=== PATIENT | male | born 1980 | race Caucasian/White ===

== ENCOUNTER 2019-04-03 18:07 | Emergency (ER) | payer BC ==
[2019-04-03] MEDS ORDERED: Morphine 2 MG/ML Syringe IVPUSH ONE ×2 (18:27→19:08)
[2019-04-03] MEDS ORDERED: Sodium Chloride 0.9% 1,000 ML IV ONE (18:27)
[2019-04-03] MEDS ORDERED: Ondansetron 4 MG/2 ML SDV IVPUSH ONE (18:27)
[2019-04-03] MEDS ORDERED: Diphtheria/Tetanus Toxoids,Adult (Td) 0.5 ML Syringe IM ONE (18:36)
[2019-04-03] MEDS ORDERED: Bacitracin Oint 1 GM U/D Packet TOP ONE (18:54)
[2019-04-03] MEDS ORDERED: cefTRIAXone 1 GM in Premix Bag 1 BAG IV ONE (18:54)
--- NOTE | 2019-04-03 19:09 | EDM.PDOC ---
ED HPI GENERAL MEDICAL PROBLEM - General Chief Complaint: Upper Extremity Injury/Pain Stated Complaint: CUT OFF FINGERS Time Seen by Provider: 04/03/19 18:23 Source of Information: Reports: Patient History Limitations: Reports: No Limitations - History of Present Illness INITIAL COMMENTS - FREE TEXT/NARRATIVE: HISTORY AND PHYSICAL: History of present illness: Patient is a 38-year-old male presents to the ED today after having a saw to his left fingers. Patient states he was working on a project at home when the side slipped and he had caught the foreign noticed third and fourth fingers. Patient states he has not had much blood loss and has come to the ED immediately. Patient states he is not up-to-date on vaccinations. Patient denies any other symptoms or any prior injury to the hand. Patient denies fever, chills, chest pain, shortness of breath, or cough. Denies headache, neck stiff ness, change in vision, syncope, or near syncope. Denies nausea, vomiting, abdominal pain, diarrhea, constipation, or dysuria. Has not noted any blood in urine or stool. Patient has been eating and drinking appropriately. Review of systems: As per history of present illness and below otherwise all systems reviewed and negative. Past medical history: As per history of present illness and as reviewed below otherwise noncontributory. Surgical history: As per history of present illness and as reviewed below otherwise noncontributory. Social history: See social history for further information Family history: As per history of present illness and as reviewed below otherwise noncontributory. Physical exam: General: Patient is alert, oriented, and in no acute distress. Patient laying comfortably on exam table. HEENT: Atraumatic, normocephalic, pupils equal and reactive bilaterally, negative for conjunctival pallor or scleral icterus, mucous membranes moist, TMs normal bilaterally, throat clear, neck supple, nontender, trachea midline. No drooling or trismus noted. No meningeal signs. No hot potato voice noted. Lungs: Clear to auscultation, breath sounds equal bilaterally, chest nontender. Heart: S1S2, regular rate and rhythm without overt murmur Abdomen: Soft, nondistended, nontender. Negative for masses or hepatosplenomegaly. Negative for costovertebral tenderness. Pelvis: Stable nontender. Genitourinary: Deferred. Rectal: Deferred. Skin:See extremities. Otherwise, Intact, warm, dry. No lesions or rashes noted. Extremities: Digits 3 and 4 of the left hand are 3/4 amputated at distal tips with bone exposed. Neuro: Awake, alert, oriented. Cranial nerves II through XII unremarkable. Cerebellum unremarkable. Motor and sensory unremarkable throughout. Exam nonfocal. Notes: Dr. Maurer directly involved in patient care. Ring was removed from patient's left hand. We do not have available EMS transfer but patient's is able to transfer via private vehicle. [facility], consulted on patient and will transfer to Dr. Palma and Dr. Singer via private vehicle Voices understanding and is agreeable to plan of care. Denies any further questions or concerns at this time. 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 Transfer to [facility] [place] to Dr. Singer/Dr. Palma. 2. Go to [facility] ER directly. Do not stop elsewhere. They are expecting you immediately. Definitive disposition and diagnosis as appropriate pending reevaluation and review of above. Treatments PRN PHYSICAL THERAPIST: Reports: Dressing(s) left hand Pain Score (Numeric/FACES): 10 - Related Data Allergies Allergy/AdvReac Type Severity Reaction Status Date / Time No Known Allergies Allergy Verified 04/03/19 18:24 Home Meds: Home Meds . [No Known Home Meds] 04/03/19 [History] Past Medical History - Past Health History Medical/Surgical History: Denies Medical/Surgical History Social & Family History - Family History Family Medical History: Noncontributory - Tobacco Use Smoking Status *Q: Never Smoker - Recreational Drug Use Recreational Drug Use: No Review of Systems - Review of Systems Review Of Systems: ROS reveals no pertinent complaints other than HPI. ED EXAM, GENERAL - Physical Exam Exam: See Below (See dictation) Course - Vital Signs Last Recorded V/S: Last Vital Signs Temp 35.5 C 04/03/19 18:07 Pulse 84 04/03/19 18:07 Resp 20 04/03/19 18:07 BP 151/79 H 04/03/19 18:07 Pulse Ox 97 04/03/19 18:07 - Orders/Labs/Meds Orders: Active Orders 24 hr Category Date Time Status Vaccines to be Administered [RC] PER UNIT ROUTINE Care 04/03/19 18:37 Active HYDROmorphone [Dilaudid] Med 04/03/19 19:46 Once 1 mg IVPUSH ONETIME ONE Labs: Laboratory Tests 04/03/19 Range/Units 18:15 WBC 8.99 (4.0-11.0) K/uL RBC 5.23 (4.50-5.90) M/uL Hgb 15.4 (13.0-17.0) g/dL Hct 44.5 (38.0-50.0) % MCV 85.1 (80.0-98.0) fL MCH 29.4 (27.0-32.0) pg MCHC 34.6 (31.0-37.0) g/dL RDW Std Deviation 43.6 (28.0-62.0) fl RDW Coeff of Tan 14 (11.0-15.0) % Plt Count 231 (150-400) K/uL MPV 10.60 (7.40-12.00) fL Neut % (Auto) 38.1 L (48.0-80.0) % Lymph % (Auto) 52.3 H (16.0-40.0) % [place] % (Auto) 7.3 (0.0-15.0) % Eos % (Auto) 2.1 (0.0-7.0) % Baso % (Auto) 0.2 (0.0-1.5) % Neut # (Auto) 3.4 (1.4-5.7) K/uL Lymph # (Auto) 4.7 H (0.6-2.4) K/uL [place] # (Auto) 0.7 (0.0-0.8) K/uL Eos # (Auto) 0.2 (0.0-0.7) K/uL Baso # (Auto) 0.0 (0.0-0.1) K/uL Nucleated RBC % 0.0 /100WBC Nucleated RBCs # 0 K/uL Meds: Medications Discontinued Medications Generic Name Dose Route Start Last Admin Trade Name Freq PRN Reason Stop Dose Admin Bacitracin 1 dose 04/03/19 18:54 06/03/19 19:05 Bacitracin Oint 1 Gm TOP 04/03/19 18:55 1 dose ONETIME ONE Administration Sodium Chloride 1,000 mls @ 999 mls/hr 04/03/19 18:27 04/03/19 18:36 Normal Saline IV 04/03/19 19:27 999 mls/hr STAT ONE Administration Ceftriaxone Sodium/Dextrose 1 50 mls @ 100 mls/hr 04/03/19 18:54 04/03/19 19: 04 gm/ Premix IV 04/03/19 19:23 100 mls/hr ONETIME ONE Administration Morphine Sulfate 2 mg 04/03/19 18:27 04/03/19 18:35 Morphine IVPUSH 04/03/19 18:28 2 mg ONETIME ONE Administration Morphine Sulfate 2 mg 04/03/19 19:08 04/03/19 19:15 Morphine IVPUSH 04/03/19 19:09 2 mg ONETIME ONE Administration Ondansetron HCl 4 mg 04/03/19 18:27 04/03/19 18:35 Zofran IVPUSH 04/03/19 18:28 4 mg ONETIME ONE Administration Tetanus/Diphtheria Toxoids 0.5 ml 04/03/19 18:36 04/03/19 18:47 Tenivac IM 04/03/19 18:37 Not Given .ONCE ONE Departure - Departure Time of Disposition: 19:50 Disposition: DC/Tfer to [facility] 02 Clinical Impression: Finger amputation, traumatic Qualifiers: Encounter type: initial encounter Qualified Code(s): S68.119A - Complete traumatic metacarpophalangeal amputation of unspecified finger, initial encounter - Discharge Information Referrals: PCP,None [Primary Care Provider] - Forms: ED Department Discharge Additional Instructions: 1. Transfer to [facility] [place] to Dr. Singer/Dr. Palma. 2. Go to [facility] ER directly. Do not stop elsewhere. They are expecting you immediately. - My Orders Last 24 Hours: My Active Orders 04/03/19 18:37 Vaccines to be Administered [RC] PER UNIT ROUTINE 04/03/19 19:46 HYDROmorphone [Dilaudid] 1 mg IVPUSH ONETIME ONE - Assessment/Plan Last 24 Hours: My Active Orders 04/03/19 18:37 Vaccines to be Administered [RC] PER UNIT ROUTINE 04/03/19 19:46 HYDROmorphone [Dilaudid] 1 mg IVPUSH ONETIME ONE
--- NOTE | 2019-04-03 19:18 | CR ---
Indication: Injury and pain Technique: Left hand 3 views Comparison: None Findings/Impression: Bones and soft tissues: No acute displaced fractures with soft tissue injury are in the distal phalanges of the 3rd and 4th fingers. No other osseous abnormality. No foreign body. Joint spaces: Unremarkable. Dictated by Pedro Young MD @ Apr 03 2019 7:14PM Signed by Dr. Pedro Young @ Apr 03 2019 7:16PM
[2019-04-03] MEDS ORDERED: HYDROmorphone 1 MG/ML Syringe IVPUSH ONE (19:46)
== END 2019-04-03 20:30 ==
LOC: MW.ED 18:07
DX: S68.623A Partial traumatic transphalangeal amputation of left middle finger, initial encounter (principal); S68.625A Partial traumatic transphalangeal amputation of left ring finger, initial encounter; W27.0XXA Contact with workbench tool, initial encounter; Y99.0 Civilian activity done for income or pay
CPT/HCPCS: 36415; 73130; 85025; 96365; 96375; 96376; 99284; A4217; J0696; J1170; J2270; J2405; J7040